=== PATIENT | male | born 1970 | race Caucasian/White ===

== ENCOUNTER 2016-11-17 12:58 | Emergency (ER) | payer BC ==
[2016-11-17 15:53] VITALS: BP 130/82
--- NOTE | 2016-11-22 07:21 | UC ---
Casandra Khalil SooYoung, scribed for Alexandra Jones DO on 11/17/16 at 1532 . Throat Pain/Nasal Medhat HPI - HPI Summary HPI Summary: A 46 y/o M [place] [facility] [place] throat onset two days ago. Associated sx: DICK, subjective fever, chills, nausea, muscle aches, joint pain. Decreased oral intake due to sore throat. Denies: sinus congestion, ear ache, cough, dysuria, dysphagia. Pt was recently camping with people who had strep and bronchitis. - History of Current Complaint Chief Complaint: UCRespiratory Stated Complaint: SORE THROAT Time Seen by Provider: 11/17/16 15:21 Hx Obtained From: Patient, Family/Advanced Manufacturing Consultant Onset/Duration: Gradual Onset, Lasting Days, Still Present Severity: Moderate Pain Intensity: 7 Pain Scale Used: 0-10 Numeric Associated Signs & Symptoms: Positive: Fever. Negative: Dysphagia, Sinus Discomfort - Allergies/Home Medications Allergies/Adverse Reactions: Allergies Allergy/AdvReac Type Severity Reaction Status Date / Time No Known Allergies Allergy Verified 11/17/16 15:19 Home Medications: Home Medications Bupropion HCl [Wellbutrin Sr] 150 mg PO 11/17/16 [History] PMH/Surg Hx/FS Hx/Imm Hx Previously Healthy: Yes Cardiovascular History: Other Other Cardiovascular History: neg: htn Respiratory History: Other Other Respiratory History: pos: neg: asthma - Surgical History Surgical History: None - Family History Known Family History: Negative: Cardiac Disease, Hypertension, Diabetes - Social History Occupation: Employed Full-time Lives: With Family Alcohol Use: Occasionally Substance Use Type: None Smoking Status (MU): Never Smoked Tobacco Review of Systems Constitutional: Fever, Chills Skin: Negative Eyes: Negative ENT: Sore Throat Respiratory: Negative Cardiovascular: Negative Gastrointestinal: Nausea, Other - decreased oral intake Genitourinary: Negative Motor: Negative Neurovascular: Negative Musculoskeletal: Arthralgia, Myalgia Neurological: Headache Psychological: Negative All Other Systems Reviewed And Are Negative: Yes Physical Exam Triage Information Reviewed: Yes Appearance: Well-Appearing, No Pain Distress, Well-Nourished Vital Signs: Initial Vital Signs Temp 97.3 F 11/17/16 15:16 Pulse 94 11/17/16 15:16 Resp 18 11/17/16 15:16 BP 141/80 11/17/16 15:16 Pulse Ox 98 11/17/16 15:16 Vital Signs Reviewed: Yes Eyes: Positive: Conjunctiva Clear. Negative: Discharge ENT: Positive: Hearing grossly normal, Pharyngeal erythema, TMs normal, Tonsillar swelling, Tonsillar exudate. Negative: Nasal congestion, Nasal drainage, Trismus, Muffled/hoarse voice Neck: Positive: Supple, Tenderness @, Enlarged Nodes @ Respiratory: Positive: Lungs clear, Normal breath sounds, No respiratory distress, No accessory muscle use Cardiovascular: Positive: RRR, No Murmur Musculoskeletal Exam: Normal Neurological: Positive: Alert, Muscle Tone Normal Psychological Exam: Normal Psychological: Positive: Normal Response To Family, Age Appropriate Behavior Skin Exam: Normal, Other - warm, dry, nml color Throat Pain/Nasal Course/Dx - Course Course Of Treatment: Medications reviewed this visit. High blood pressure noted , recommended f/u with PCP. - Differential Dx/Diagnosis Differential Diagnosis/HQI/PQRI: Pharyngitis, Sinusitis, Tonsillitis, URI Provider Diagnoses: 1. Strep throat. 2. Elevated blood pressure without diagnosis of hypertension. Discharge - Discharge Plan Condition: Stable Disposition: HOME Prescriptions: Amoxicillin PO (*) [Amoxicillin 500 MG CAP*] 500 mg PO Q12H #20 cap Magic Mouth Was-BEBE/MAAL/LIDO* 5 ml SWISH SPIT QID PRN #100 ml PRN Reason: Pain Patient Education Materials: Strep Throat (ED) Referrals: No Primary Care Phys,NOPCP [Primary Care Provider] - [facility] [place] [facility]FERRAL [Outside] Additional Instructions: AMOXICILLIN: Amoxicillin is a member of the penicillin family. It covers the germs likely to cause ear, bronchial, and urinary infections better than plain penicillin. Amoxicillin can be taken without regard to meals. Nausea after taking the medication is rare, but can occur. Diarrhea can occur, particularly in small children. Vaginal yeast infections and oral thrush in infants are also common. Contact your physician if these problems occur. Allergy to penicillins is common. If you have had an allergic reaction to any drug of the penicillin family, you should never take any other penicillin. Notify your doctor at once if you develop hives, itching, swelling, faintness, or shortness of breath. Less serious side effects can include nausea or diarrhea. ANYTIME YOU TAKE AN ANTIBIOTIC, IT IS IMPORTANT TO REPLENISH THE BODY'S SUPPLY OF "GOOD BACTERIA." YOU CAN GET GOOD BACTERIA FROM HIGH QUALITY CULTURED FOODS SUCH LOCAL YOGURT, SOUR KRAUT, CARLY JEFF, NATURALLY FERMENTED PICKLES AND PROBIOTIC DRINKS. YOU CAN ALSO GET GOOD BACTERIA FROM A PROBIOTIC SUPPLEMENT. DISCUSSED, TRY MAGIC MOUTHWASH TO CONTROL PAIN PRIOR TO EATING. Your blood pressure was elevated at this visit (141/80). That does not mean you have hypertension, it is probably due to your current condition. Please follow up with your primary care provider. Return to Urgent Care if you have any new or worsening symptoms. You should establish with a private physician for follow-up care. If you are unable to get a timely appointment, or if you are worsening, call us or return for re-evaluation. An additional resource available to assist in finding the appropriate physician for your health care needs is the Physician Referral Center. You may contact them by calling [phone]. The documentation as recorded by the Casandra hurtado SooYoung accurately reflects the service I personally performed and the decisions made by me, Alexandra Jones DO.
== END 2016-11-17 15:50 | disposition home or self-care (01) ==
LOC: UCEAST 12:58
DX: J02.0 Streptococcal pharyngitis (principal); R03.0 Elevated blood-pressure reading, without diagnosis of hypertension
CPT/HCPCS: 87651; 99212; G0463

== ENCOUNTER → 2017-04-26 07:43 | Emergency (ER) | payer BC ==
[~2017-04-26 07:43] MED LIST: Acetaminophen TAB* 325 MG PO ONE; Al Hydrox/Mg Hydrox/Simet LIQ* 30 ML UDC PO ONE; Iohexol 300* (CONTRAST) 10 ML SDV IV ONE; Iohexol 350* (CONTRAST) 500 ML MDV IV ONE; Ketorolac INJ* 30 MG/ML 1 ML VIAL IV PUSH ONE; Lidocaine 2% VISCOUS* 15 ML UDC PO ONE
[2017-04-26] MEDS: NS 0.9% 1000 ML* 1,000 ML IV SCH ×2 (08:33→12:06)
[2017-04-26 08:43] LABS: ABS Basophils 0.1 10^3/ul (0-0.2); ABS Eosinophils 0 10^3/ul (0-0.6); ABS Lymphocytes 0.8 10^3/ul (1.0-4.8); ABS Monocytes 0.3 10^3/ul (0-0.8); ABS Neutrophils 12.4 10^3/ul (1.5-7.7); ABS Nucleated RBC 0 10^3/ul; Eosinophil % 0.2 % (0-6); Hematocrit 49 % (42-52); Hemoglobin 16.7 g/dl (14.0-18.0); Mean Corpuscular HGB Conc 34 g/dl (31-36); Mean Corpuscular Hemoglobin 31 pg (27-31); Mean Corpuscular Volume 91 fL (80-94); Mean Platelet Volume 8 um3 (7.4-10.4); Nucleated Red Blood Cells % 0.2; Platelet Count 204 10^3/ul (150-450); Red Blood Count 5.38 10^6/ul (4.0-5.4); Red Cell Distribution Width 13 % (10.5-15); White Blood Count 13.6 10^3/ul (3.5-10.8)
[2017-04-26 08:59] LABS: EGFR Non-African American 86.4 (>60)
[2017-04-26 10:28] LABS: Urine Appearance Clear; Urine Blood Negative (Negative); Urine Color Yellow; Urine Ketones Negative (Negative); Urine Protein Negative (Negative); Urine Specific Gravity 1.051 (1.010-1.030); Urine Urobilinogen Negative (Negative)
--- NOTE | 2017-04-26 11:03 | RAD ---
CLINICAL HISTORY: Right-sided abdominal pain COMPARISON: None TECHNIQUE: Contrast enhanced CT examination of the abdomen and pelvis from the lung bases through the initial tuberosities. The patient received 127 mL Omnipaque 300 intravenously prior to imaging.The patient received oral contrast as well prior to imaging. FINDINGS: VISUALIZED LUNG BASES: The visualized lung bases are grossly clear. There is no pleural effusion. ABDOMEN AND PELVIS: In the right lobe of the liver there is a 7 mm focal hypoattenuation (image 24). The liver is otherwise homogenous in attenuation with no suspicious masses or surface irregularity. The spleen, pancreas and adrenal glands are grossly normal in appearance. The gallbladder is normal. The common bile duct measures a maximum diameter of 5 mm. The kidneys are normal in appearance without focal mass, calcification or signs of hydronephrosis. Neural contrast has progressed as far as the distal small bowel. This limits evaluation of the terminal ileum and colon. The small and large bowel are not distended. The patient's normal appendix is identified in the right lower quadrant with gas in the lumen measuring just under 6 mm in diameter (axial image 48). Beginning at the splenic flexure there is questionable wall thickening of the descending colon measuring just under 6 mm in maximum thickness. There is a slight amount of pericolonic infiltration of the mesenteric fat at this location as well (coronal image 52 and axial image 63 for example). There is no gross retroperitoneal or mesenteric lymphadenopathy. The pelvic viscera is normal in appearance. The abdominal aorta and iliac arteries are normal in course and diameter. Degenerative changes include multilevel loss of intervertebral disc height involving the lower thoracic and lumbar spine.There are no sinister bone lesions. IMPRESSION: 1. There is a highly questionable segment of mild wall thickening and pericolonic infiltration extending from the splenic flexure to the junction of the sigmoid colon. Please correlate to signs or symptoms of colitis. 2. Incidentally noted is a subcentimeter hypoattenuating focus in the dependent right lobe of the liver that is incompletely characterized on this CT examination. If clinically warranted this can be further characterized with ultrasound on a nonemergent basis. 3. Otherwise there are no focal CT apparent abnormalities that would account for the patient's current presentation.
--- NOTE | 2017-04-26 15:28 | RAD ---
INDICATION: Epigastric pain and tachycardia COMPARISON: Same day CT abdomen pelvis that demonstrates questionable distal colitis. TECHNIQUE: Axial source images were acquired following the administration of 73 mL Omnipaque [address] angiographic technique. Coronal and sagittal reconstructed images were constructed and reviewed. FINDINGS: There there are no filling defects in the pulmonary arteries to indicate acute pulmonary embolic disease. There are no focal infiltrates or effusions. There are no pulmonary parenchymal masses. The heart is normal in size. There is no evidence of pericardial effusion. There is no evidence of aortic aneurysm or dissection. There is no mediastinal, hilar, or axillary lymphadenopathy. The visualized osseous structures appear normal. Again noted is a subcentimeter focal hypoattenuating lesion in the lower right lobe of the liver. IMPRESSION: No CT of evidence of pulmonary embolism.
[2017-04-26 16:03] VITALS: BP 137/91
--- NOTE | 2017-04-26 18:08 | ED ---
Stephen Khalil Nikita, scribed for Varghese Isaac MD on 04/26/17 at 0818 . Abdominal Pain/Male - HPI Summary HPI Summary: This patient is a 47 year old M presenting to ED with a chief complaint of epigastric pain since 0400 this morning. The CC is described as burning, aching , intermittent, and slightly radiating to L side of chest. The patient rates the pain 7/10 in severity. Symptoms aggravated by palpation. Symptoms alleviated by nothing. Patient reports chills. Patient denies fever. Pt has not eaten anything spicy or had any wine. - History of Current Complaint Chief Complaint: EDAbdPain Stated Complaint: ABD PAIN Time Seen by Provider: 04/26/17 08:14 Hx Obtained From: Patient Onset/Duration: Sudden Onset, Lasting Hours, Still Present Timing: Intermittent Severity Initially: Moderate Severity Currently: Moderate Pain Intensity: 8 Pain Scale Used: 0-10 Numeric Location: Epigastric Radiates: Yes Radiates to: Chest Aggravating Factor(s): Other: - palpation Alleviating Factor(s): Nothing Associated Signs And Symptoms: Positive: Other - Patient reports chills. Patient denies fever. - Allergies/Home Medications Allergies/Adverse Reactions: Allergies Allergy/AdvReac Type Severity Reaction Status Date / Time No Known Allergies Allergy Verified 04/26/17 09:09 Home Medications: Home Medications Bupropion XL* [Wellbutrin XL *] 150 mg PO DAILY 04/26/17 [History Confirmed 06/08] PMH/Surg Hx/FS Hx/Imm Hx Endocrine/Hematology History: Denies: Hx Diabetes Cardiovascular History: Denies: Hx Coronary Artery Disease, Hx Hypertension Infectious Disease History: No Infectious Disease History: Denies: Traveled Outside the [place] in Last 30 Days - Family History Known Family History: Negative: Cardiac Disease, Hypertension, Diabetes - Social History Alcohol Use: Occasionally Substance Use Type: Reports: None Smoking Status (MU): Never Smoked Tobacco Review of Systems Positive: Chills. Negative: Fever Positive: Abdominal Pain - epigastric pain radiating to L side of chest All Other Systems Reviewed And Are Negative: Yes Physical Exam - Summary Physical Exam Summary: VITAL SIGNS: Reviewed. GENERAL: Patient is a well-developed and nourished male who is lying comfortable in the stretcher. ~Patient is not in any acute respiratory distress. HEAD AND FACE: Normocephalic and atraumatic. EYES: PERRLA, EOMI x 2, No injected conjunctiva. EARS: Hearing grossly intact. Ear canals and tympanic membranes are WNL. MOUTH: Oropharynx within normal limits. NECK: Supple, trachea is midline, no adenopathy, no JVD. CHEST: Symmetric, no tenderness at palpation LUNGS: Clear to auscultation bilaterally. No wheezing or crackles. CVS: RRR, S1 and S2 present, no murmurs or gallops appreciated. ABDOMEN: Epigastric tenderness to palpation. No signs of distention. Positive bowel sounds. No rebound no guarding, and no masses palpated. No abdominal bruit or pulsations. EXTREMITIES: FROM in all major joints, no edema, no cyanosis or clubbing. NEURO: Alert and oriented x 3. No acute neurological deficits. Speech is normal. SKIN: Dry and warm Triage Information Reviewed: Yes Vital Signs On Initial Exam: Initial Vitals Temp Pulse Resp BP Pulse Ox 96.9 F 63 19 168/103 98 04/26/17 07:47 04/26/17 07:47 04/26/17 07:47 04/26/17 07:47 04/26/17 07:47 Vital Signs Reviewed: Yes Diagnostics - Vital Signs Vital Signs Temp Pulse Resp BP Pulse Ox 04/26/17 08:00 55 19 98 04/26/17 07:57 57 14 98 04/26/17 07:55 177/96 04/26/17 07:47 96.9 F 63 19 168/103 98 - Laboratory Lab Results: Lab Results 04/26/17 04/26/17 04/26/17 Range/Units 08:25 08:25 10:20 WBC 13.6 H (3.5-10.8) 10^3/ul RBC 5.38 (4.0-5.4) 10^6/ul Hgb 16.7 (14.0-18.0) g/dl Hct 49 (42-52) % MCV 91 (80-94) fL MCH 31 (27-31) pg MCHC 34 (31-36) g/dl RDW 13 (10.5-15) % Plt Count 204 (150-450) 10^3/ul MPV 8 (7.4-10.4) um3 Neut % (Auto) 91.0 H (38-83) % Lymph % (Auto) 6.0 L (25-47) % [place] % (Auto) 2.3 (1-9) % Eos % (Auto) 0.2 (0-6) % Baso % (Auto) 0.5 (0-2) % Absolute Neuts (auto) 12.4 H (1.5-7.7) 10^3/ul Absolute Lymphs (auto) 0.8 L (1.0-4.8) 10^3/ul Absolute Monos (auto) 0.3 (0-0.8) 10^3/ul Absolute Eos (auto) 0 (0-0.6) 10^3/ul Absolute Basos (auto) 0.1 (0-0.2) 10^3/ul Absolute Nucleated RBC 0 10^3/ul Nucleated RBC % 0.2 Sodium 137 (133-145) mmol/L Potassium 4.1 (3.5-5.0) mmol/L Chloride 102 (101-111) mmol/L Carbon Dioxide 27 (22-32) mmol/L Anion Gap 8 (2-11) mmol/L BUN 18 (6-24) mg/dL Creatinine 0.94 (0.67-1.17) mg/dL Est GFR ( Amer) 111.1 (>60) Est GFR (Non-Af Amer) 86.4 (>60) BUN/Creatinine Ratio 19.1 (8-20) Glucose 128 H (70-100) mg/dL Calcium 9.7 (8.6-10.3) mg/dL Magnesium 2.1 (1.9-2.7) mg/dL Total Bilirubin 1.00 (0.2-1.0) mg/dL AST 21 (13-39) U/L ALT 32 (7-52) U/L Alkaline Phosphatase 79 (34-104) U/L Total Creatine Kinase 61 (10-223) U/L Troponin I 0.00 (<0.04) ng/mL C-Reactive Protein 2.58 (< 5.00) mg/L Total Protein 8.0 (6.4-8.9) g/dL Albumin 4.6 (3.2-5.2) g/dL Globulin 3.4 (2-4) g/dL Albumin/Globulin Ratio 1.4 (1-3) Amylase 32 (29-103) U/L Lipase 19 (11.0-82.0) U/L Urine Color Yellow Urine Appearance Clear Urine pH 7.0 (5-9) Ur Specific [place] 1.051 H (1.010-1.030) Urine Protein Negative (Negative) Urine Ketones Negative (Negative) Urine Blood Negative (Negative) Urine Nitrate Negative (Negative) Urine Bilirubin Negative (Negative) Urine Urobilinogen Negative (Negative) Ur Leukocyte Esterase Negative (Negative) Urine Glucose Negative (Negative) 04/26/17 Range/Units 11:11 WBC (3.5-10.8) 10^3/ul RBC (4.0-5.4) 10^6/ul Hgb (14.0-18.0) g/dl Hct (42-52) % MCV (80-94) fL MCH (27-31) pg MCHC (31-36) g/dl RDW (10.5-15) % Plt Count (150-450) 10^3/ul MPV (7.4-10.4) um3 Neut % (Auto) (38-83) % Lymph % (Auto) (25-47) % [place] % (Auto) (1-9) % Eos % (Auto) (0-6) % Baso % (Auto) (0-2) % Absolute Neuts (auto) (1.5-7.7) 10^3/ul Absolute Lymphs (auto) (1.0-4.8) 10^3/ul Absolute Monos (auto) (0-0.8) 10^3/ul Absolute Eos (auto) (0-0.6) 10^3/ul Absolute Basos (auto) (0-0.2) 10^3/ul Absolute Nucleated RBC 10^3/ul Nucleated RBC % Sodium (133-145) mmol/L Potassium (3.5-5.0) mmol/L Chloride (101-111) mmol/L Carbon Dioxide (22-32) mmol/L Anion Gap (2-11) mmol/L BUN (6-24) mg/dL Creatinine (0.67-1.17) mg/dL Est GFR ( Amer) (>60) Est GFR (Non-Af Amer) (>60) BUN/Creatinine Ratio (8-20) Glucose (70-100) mg/dL Calcium (8.6-10.3) mg/dL Magnesium (1.9-2.7) mg/dL Total Bilirubin (0.2-1.0) mg/dL AST (13-39) U/L ALT (7-52) U/L Alkaline Phosphatase (34-104) U/L Total Creatine Kinase (10-223) U/L Troponin I 0.00 (<0.04) ng/mL C-Reactive Protein (< 5.00) mg/L Total Protein (6.4-8.9) g/dL Albumin (3.2-5.2) g/dL Globulin (2-4) g/dL Albumin/Globulin Ratio (1-3) Amylase (29-103) U/L Lipase (11.0-82.0) U/L Urine Color Urine Appearance Urine pH (5-9) Ur Specific [place] (1.010-1.030) Urine Protein (Negative) Urine Ketones (Negative) Urine Blood (Negative) Urine Nitrate (Negative) Urine Bilirubin (Negative) Urine Urobilinogen (Negative) Ur Leukocyte Esterase (Negative) Urine Glucose (Negative) Result Diagrams: 04/26/17 08:25 04/26/17 08:25 Lab Statement: Any lab studies that have been ordered have been reviewed, and results considered in the medical decision making process. - CT Abd/pel CT Interpretation Completed By: Radiologist - 1. There is a highly questionable segment of mild wall thickening and pericolonic infiltration extending from the splenic flexure to the junction of the sigmoid colon. Please correlate to signs or symptoms of colitis. 2. Incidentally noted is a subcentimeter hypoattenuating focus in the dependent right lobe of the liver that is incompletely characterized on this CT examination. If clinically warranted this can be further characterized with ultrasound on a nonemergent basis. 3. Otherwise there are no focal CT apparent abnormalities that would account for the patient's current presentation. ED physician has reviewed this radiology report. Chest/Thorax CTA CT Interpretation Completed By: Radiologist - No CT of evidence of pulmonary embolism. ED physician has reviewed this radiology report. - EKG 0751 Cardiac Rate: Bradycardia EKG Rhythm: Sinus Bradycardia - 55 bpm EKG Interpretation: No ST elevations Re-Evaluation - Re-Evaluation First Eval Re-Evaluation Time: 11:53 Comment: Pt was tachycardic and developed a fever. Therefore he was given fluids , Toradol, and Tylenol and will reassess the pt. Abdominal Pain Fem Course/Dx - Course Assessment/Plan: This patient is a 47 year old M presenting to ED with a chief complaint of epigastric pain since 0. Blood work is without significant abnormalities except WBC 13.6. Urinalysis is negative for UTI. CRP is normal. Abd/pel CT shows 1. There is a highly questionable segment of mild wall thickening and pericolonic infiltration extending from the splenic flexure to the junction of the sigmoid colon. Please correlate to signs or symptoms of colitis. 2. Incidentally noted is a subcentimeter hypoattenuating focus in the dependent right lobe of the liver that is incompletely characterized on this CT examination. If clinically warranted this can be further characterized with ultrasound on a nonemergent basis. 3. Otherwise there are no focal CT apparent abnormalities that would account for the patient's current presentation. In the ED course, the pt was given IV fluids and the sx subsided. Pt was given a GI cocktail which improved his sx. Pt developed low grade fever and given toradol and Ibuprofen. But before the pt was D/C, the pt was tachycardic. Therefore, we continued fluids and obtained a chest CT which showed no CT of evidence of pulmonary embolism. The pt's HR improved into the 90's, he was hydrated, and now feels better. The pt will be discharged with instructions to f/u with PCP. The pt is hemodynamically stable, alert and oriented x3. I discussed all the findings and test results with the patient. Patient was instructed to return to the emergency room immediately if any of the symptoms return or worsens. Plan of care was discussed with the patient and understands and agrees. All questions were answered at patient satisfaction. There were no further complaints or concerns. Lung exam before discharge: CTA B/L. Good air exchange. No wheezing or crackles heard. CVS: S1 and S2 present. No murmurs appreciated. Patient is alert and oriented x 3. Patient is hemodynamically stable. Patient will be discharged home with follow up PCP in the next 2-3 days - Diagnoses Differential Diagnosis/HQI/PQRI: Appendicitis, Constipation, Diverticulitis, Renal Colic, Other - colitis Provider Diagnoses: Colitis Discharge - Discharge Plan Condition: Stable Disposition: HOME Prescriptions: traMADol TAB* [Ultram*] 25 mg PO Q8H PRN #12 tab MDD 4 PRN Reason: Pain Patient Education Materials: Colitis (ED) Referrals: Golden Mortensen MD [Primary Care Provider] - 3 Days Rakesh Rodas MD [Medical Doctor] - 3 Days Additional Instructions: RETURN TO THE ED FOR ANY NEW OR WORSENING SYMPTOMS. The documentation as recorded by the Stephen hurtado Nikita accurately reflects the service I personally performed and the decisions made by Poncho mendes Walter, MD.
== END | disposition home or self-care (01) ==
LOC: ED 07:43
DX: K52.9 Noninfective gastroenteritis and colitis, unspecified (principal)
CPT/HCPCS: 36415; 71275; 74177; 80053; 81003; 82150; 82550; 83690; 83735; 84484; 85025; 86140; 93005; 96360; 96374; 96375; 96376; 99284; A9270-GY; J1885; Q9967